=== PATIENT | female | born 1975 | race Caucasian/White ===

== ENCOUNTER → 2016-12-10 | Outpatient (CLI) | payer OTHER ==
--- NOTE | 2016-12-14 08:04 | MM ---
Reason for exam: screening (asymptomatic). Baseline mammogram. Physical Findings: Nurse did not find any significant physical abnormalities on exam. MG Screening Mammo w CAD Bilateral CC and MLO view(s) were taken. There is no discrete abnormality. ASSESSMENT: Benign, BI-RAD 2 RECOMMENDATION: Routine screening mammogram of both breasts in 1 year.
== END | disposition home or self-care (01) ==
LOC: RADMAMWWP 13:03
PROVIDERS: ATTEND Obstetrics & Gynecology
DX: Z12.31 Encounter for screening mammogram for malignant neoplasm of breast (principal)

== ENCOUNTER → 2019-07-11 | Outpatient (CLI) | payer OTHER ==
--- NOTE | 2019-07-13 13:36 | MM ---
Reason for exam: screening (asymptomatic). Last mammogram was performed 2 years and 7 months ago. Physical Findings: A clinical breast exam by your physician is recommended on an annual basis and results should be correlated with mammographic findings. MG Screening Mammo w CAD Bilateral CC and MLO view(s) were taken. Prior study comparison: December 10, 2016, bilateral MG screening mammo w CAD. The breast tissue is heterogeneously dense. This may lower the sensitivity of mammography. ASSESSMENT: Benign, BI-RAD 2 RECOMMENDATION: Routine screening mammogram of both breasts in 1 year.
== END | disposition home or self-care (01) ==
LOC: RADMAMWWP 14:16
PROVIDERS: ATTEND Obstetrics & Gynecology
DX: Z12.31 Encounter for screening mammogram for malignant neoplasm of breast (principal)
CPT/HCPCS: 77067

== ENCOUNTER → 2021-07-06 | Outpatient (CLI) | payer OTHER ==
--- NOTE | 2021-07-08 09:42 | MM ---
Reason for exam: screening (asymptomatic). Last mammogram was performed 2 years ago. Physical Findings: A clinical breast exam by your physician is recommended on an annual basis and results should be correlated with mammographic findings. MG Screening Mammo w CAD Bilateral CC and MLO view(s) were taken. Prior study comparison: July 11, 2019, bilateral MG screening mammo w CAD. December 10, 2016, bilateral MG screening mammo w CAD. The breast tissue is heterogeneously dense. This may lower the sensitivity of mammography. No significant changes when compared with prior studies. ASSESSMENT: Benign, BI-RAD 2 RECOMMENDATION: Routine screening mammogram of both breasts in 1 year.
== END | disposition home or self-care (01) ==
LOC: RADMAMWWP 15:06
PROVIDERS: ATTEND Obstetrics & Gynecology
DX: Z12.31 Encounter for screening mammogram for malignant neoplasm of breast (principal)
CPT/HCPCS: 77067

== ENCOUNTER → 2022-11-12 | Outpatient (CLI) | payer BC ==
--- NOTE | 2022-11-15 08:16 | MM ---
Reason for Exam: Screening (asymptomatic). Last mammogram was performed 1 year(s) and 4 month(s) ago. Patient History: Menarche at age 16. First Full-Term at age 30. Perimenopausal. Risk Values: Arielle 5 year model risk: 0.8%. NCI Lifetime model risk: 9.7%. Prior Study Comparison: 12/10/2016 Bilateral Screening Mammogram, [facility]. 07/11/2019 Bilateral Screening Mammogram, [facility]. 07/06/2021 Bilateral Screening Mammogram, [facility]. Tissue Density: The breast tissue is heterogeneously dense. This may lower the sensitivity of mammography. Findings: Analyzed By CAD. There is no suspicious group of microcalcifications or new suspicious mass in either breast. Overall Assessment: Negative, BI-RAD 1 Management: Screening Mammogram of both breasts in 1 year. A clinical breast exam by your physician is recommended on an annual basis and results should be correlated with mammographic findings. Electronically signed and approved by: Kevin Frost D.O.
== END | disposition home or self-care (01) ==
LOC: RADMAMWWP 07:57
PROVIDERS: ATTEND Obstetrics & Gynecology
DX: Z12.31 Encounter for screening mammogram for malignant neoplasm of breast (principal)
CPT/HCPCS: 77067

== ENCOUNTER → 2023-05-13 | Outpatient (CLI) | payer BC ==
--- NOTE | 2023-05-13 15:02 | CT ---
EXAMINATION TYPE: CT abdomen pelvis w con DATE OF EXAM: 05/13/2023 COMPARISON: NONE HISTORY: 47-year-old female R10.84 GENERALIZED ABDOMINAL PAIN, R11.10, K52.9, Nausea, vomiting, diarr hea, loss of appetite, weakness, abdominal pain and unexpected weight loss x4wks. TECHNIQUE: Contiguous axial scanning of the abdomen and pelvis following administration of 100 ml Iso evaristo 300 IV contrast. Delayed images through the kidneys and coronal/sagittal reconstructions perform ed. CT DLP: 852.9 mGycm Automated exposure control for dose reduction was used. FINDINGS: LUNG BASES: Small pericardial effusion along the anterior base of the heart. Otherwise, no significan t abnormality. LIVER/GB: Nonspecific 1 cm hypodense lesion lateral right lower lobe. Portal venous system is patent. No biliary ductal dilatation. PANCREAS: There is a tiny 8 mm hypodensity at the neck of the pancreas that could represent a tiny cy st or ectatic side branch radicle. Short interval follow-up recommended to exclude the possibility of a small early mass. SPLEEN: No significant abnormality is seen. ADRENALS: No significant abnormality is seen. KIDNEYS: There is a horseshoe kidney. Delayed excretion of contrast from the kidneys. BOWEL: No dilated small bowel, free fluid, or free air. There appears to be some fold thickening kendell g the ascending colon. Scattered mild stool. No pericolonic inflammatory change. Appendix is not well seen. No secondary findings of acute appendicitis in the right lower quadrant. LYMPH NODES: Numerous scattered lymph nodes throughout the abdominal mesentery measuring up to 1.5 cm . Best appreciated on coronal series. OTHER: No significant abnormality is seen. PELVIS: Bladder nondistended. Uterus anteverted. Both ovaries are visualized. No abnormal fluid colle ction in the pelvis or pelvic lymphadenopathy. BONES: Levoconvex curvature of the lumbar spine. IMPRESSION: 1. NUMEROUS MILDLY ENLARGED LYMPH NODES SCATTERED THROUGHOUT THE MESENTERY MEASURING UP TO 1.5 CM. CO NSIDER MESENTERIC ADENITIS. [address] MONTH FOLLOW-UP CT TO ENSURE STABILITY/RESOLUTION AND EXCLUDE MORE AGGR ESSIVE ETIOLOGIES SUCH EARLY LYMPHOMA. 2. Scattered fold thickening throughout the ascending colon. Correlate for any symptoms of nonspecifi c colitis. 3. Nonspecific 1 cm lesion lateral right liver lobe. This should also be reassessed at the patient's three-month follow-up. 4. Horseshoe kidney. Delayed excretion of contrast from the kidneys. Correlate with patient's kidney function to exclude a GI. 5. An 8 mm hypodensity at the neck of the pancreas could represent a tiny cyst or ectatic side branch radicle. Follow-up in 3 months to ensure stability.
== END | disposition home or self-care (01) ==
LOC: RADCTMAIN 12:36
PROVIDERS: ATTEND Family Medicine
DX: K76.9 Liver disease, unspecified (principal); Q63.1 Lobulated, fused and horseshoe kidney; K52.9 Noninfective gastroenteritis and colitis, unspecified; K63.9 Disease of intestine, unspecified
CPT/HCPCS: 74177; Q9967

== ENCOUNTER → 2023-12-21 | Outpatient (CLI) | payer BC ==
--- NOTE | 2023-12-22 10:19 | MM ---
Reason for Exam: Screening (asymptomatic). Last mammogram was performed 1 year(s) and 2 month(s) ago. Patient History: Menarche at age 16. First Full-Term at age 30. Perimenopausal. Risk Values: Arielle 5 year model risk: 0.9%. NCI Lifetime model risk: 9.6%. Prior Study Comparison: 07/11/2019 Bilateral Screening Mammogram, [facility]. 07/06/2021 Bilateral Screening Mammogram, [facility]. 11/12/2022 Bilateral MG screening mammo w CAD, [facility]. Tissue Density: The breasts are heterogeneously dense, which may obscure small masses. Findings: Analyzed By CAD. There is no suspicious group of microcalcifications or new suspicious mass in either breast. Overall Assessment: Negative, BI-RAD 1 Management: Screening Mammogram of both breasts in 1 year. . Patient should continue monthly self-breast exams. A clinical breast exam by your physician is recommended on an annual basis. This exam should not preclude additional follow-up of suspicious palpable abnormalities. Note on Arielle scores and lifetime risk: 1. A Arielle score greater than 3% is considered moderate risk. If this is the case, consider specialist referral to assess eligibility for a risk reducing agent. 2. If overall lifetime risk for the development of breast cancer is 20% or higher, the patient may qualify for future screening with alternating mammogram and breast MRI. Electronically signed and approved by: Robin Chan M.D. Radiologis
== END | disposition home or self-care (01) ==
LOC: RADMAMWWP 08:53
PROVIDERS: ATTEND Obstetrics & Gynecology
DX: Z12.31 Encounter for screening mammogram for malignant neoplasm of breast (principal)
CPT/HCPCS: 77067